=== PATIENT | male | born 1980 | race Caucasian/White ===

== ENCOUNTER 2025-01-02 09:29 | Emergency (ER) | payer OTHER, SELFPAY ==
[2025-01-02 09:30] VITALS: BP 192/118
[2025-01-02 09:49] LABS: % Basophils 1.2 % (0-2); % Eosinophils 3.5 % (0-6); % Immature Granulocytes 0.4 % (0-0.5); % Lymphocytes 21.9 % (20.5-51.1); % Monocytes 7.2 % (1.7-9.3); % Neutrophils 65.8 % (42.2-75.2); Absolute Basophils 0.1 10^3/uL (0-0.2); Absolute Eosinophils 0.4 10^3/uL (0-0.7); Absolute Lymphocytes 2.5 10^3/uL (1.2-3.4); Absolute Monocytes 0.8 10^3/uL (0.1-0.6); Absolute Neutrophils 7.5 10^3/uL (1.4-6.5); Hematocrit 45.6 % (39.0-52.0); Hemoglobin 16.5 g/dL (13.0-18.0); Mean Corp Hgb Conc. 36.2 g/dL (33.0-37.0); Mean Corpuscular Hgb 31.4 pg (27.0-31.0); Mean Corpuscular Volume 86.9 fL (80.0-94.0); Mean Platelet Volume 9.1 fL (7.4-10.4); Nucleated Red Blood Cells % 0 % (-); Platelet Count 211 10^3/uL (130-400); Red Blood Cell Count 5.25 10^6/uL (4.70-6.10); Red Cell Dist. Width 11.9 % (11.5-14.5); White Blood Cell Count 11.3 10^3/uL (4.8-10.8)
[2025-01-02 10:07] LABS: ALT (SGPT) 86 U/L (0-50); AST (SGOT) 49 U/L (17-59); Albumin 4.4 g/dl (3.5-5.0); Alkaline Phosphatase 84 U/L (38-126); Blood Urea Nitrogen 16 mg/dl (9-20); Calcium 9.9 mg/dl (8.4-10.2); Carbon Dioxide 25 mmol/L (22-30); Chloride 106 mmol/L (98-107); Glucose 106 mg/dl (70-99); Potassium 4.5 mmol/L (3.5-5.1); Sodium 140 mmol/L (135-145); Total Protein 7.6 g/dl (6.3-8.2); eGFR > 60.00
[2025-01-02 10:18] LABS: Troponin I < 0.012 ng/ml
--- NOTE | 2025-01-02 11:03 | ED.GENMED ---
History of Present Illness
General
Chief Complaint: Breathing Problem
Source: patient
Exam Limitations: none
Time Seen by Provider: 01/02/25 10:21
Nursing documentation reviewed up to this point in time: agreed with
History of Present Illness
History of Present Illness:
44-year-old male presenting to the emergency department today with concerns of an episode where he felt some chest tightness and shortness of breath upon awakening this morning at 2 AM roughly 8 hours prior to arrival to the emergency department.
Patient went to the primary care doctor this morning was sent to the ER with concerns of the symptoms.
Past History
Past History
ED Past Medical History: None
ED Past Surgical History: None
Social History
Tobacco: Non-smoker
Alcohol: Occasional
Drug: None
Personal:
Living: with family
Employment: Employed
Review of Systems
Review of Systems
Allergies reviewed?: Yes
All Other Systems: ROS reviewed and negative except as documented in HPI and ROS
Phy Exam
Physical Exam
Physical Exam:
GENERAL: Alert , in no apparent distress
EYE: pupils equal and reactive
NECK: Supple, no significant adenopathy.
ENT: o/p clr, mmm.
CARDIAC: Regular rate and rhythm .
LUNGS: Clear breath sounds bilaterally, no acute respiratory distress, no wheezes/rales/rhonchi
ABDOMEN: Soft, without focal tenderness, no r/g, no cvat
NEUROLOGICAL: Alert and oriented, no focal neuro deficits
SKIN: Warm and dry, skin intact.
MUSCULOSKELETAL: No edema, well perfused.
PSYCH: Normal and appropriate interaction.
Scores
Heart Failure Risk
Heart Failure Risk Score: Not Applicable
Course
Orders/Labs/Results
Orders:
Orders
01/02/25 09:32
ECG [Electrocardiogram (*1)] Urgent
Reason for Study: Shortness of Breath
EKG- Treatment ONCE
01/02/25 09:34
CR Chest - 2 Views Urgent
Comment:
Reason For Exam: shortness of breath
01/02/25 09:39
Complete Blood Count/With Diff Urgent
Comprehensive Metabolic Panel Urgent
01/02/25 09:40
Troponin I Urgent
01/02/25 11:04
Vital Signs- Treatment ONCE
Frequency: Once
Abnormal Lab Results
01/02/25
09:39
WBC 11.3 H 10^3/uL
(4.8-10.8)
MCH 31.4 H pg
(27.0-31.0)
Absolute Neuts (auto) 7.5 H 10^3/uL
(1.4-6.5)
Absolute Monos (auto) 0.8 H 10^3/uL
(0.1-0.6)
Glucose 106 H mg/dl
(70-99)
ALT 86 H U/L
(0-50)
01/02/25 09:39
01/02/25 09:39
Vital Signs
Initial and Last Documented VS:
Initial Vital Signs
Temp Pulse Resp BP Pulse Ox
98.8 F 92 16 192/118 98
01/02/25 09:30 01/02/25 09:30 01/02/25 09:30 01/02/25 09:30 01/02/25 09:30
Last Documented Vital Signs
Temp Pulse Resp BP Pulse Ox
98.8 F 86 16 151/113 100
01/02/25 09:30 01/02/25 11:32 01/02/25 11:32 01/02/25 11:32 01/02/25 11:32
MDM/Problems Addressed
MDM/Problems Addressed:
44-year-old male presenting to the emergency department today with concerns of episode of shortness of breath chest pain earlier this morning. Had the flu a few weeks ago. Here blood pressure is elevated otherwise vital signs are normal. Labs
without emergent findings. Troponin negative EKG unchanged for many years. Chest x-ray normal. Blood pressure improving throughout ER stay from the 190s to the 150s over 100 patient asymptomatic for multiple hours here stable for outpatient
follow-up return precautions given. Primary care team was contacted about his elevated blood pressure.
*Critical Care Note
Total Time (30-74mins, 75-104mins- exclusive of procedures): Not Applicable
ED Attending Note
-
Portions of this chart may have been created with voice recognition software.� Occasional wrong word or��sound alike� substitutions may have occurred due to the inherent limitations of voice recognition software.
Discharge Plan
Departure
Patient Disposition: Home (Routine Discharge)
Date of Disposition: 01/02/25
Time of Disposition: 11:59
Patient with high blood pressure during this ER visit?: Yes
Condition: Good
Covid-19: Not Applicable
Discharge Problem:
High blood pressure, Shortness of breath
Instructions: BLOOD PRESSURE
Prescriptions:
No Action
esomeprazole magnesium [Nexium] 40 MG capsule,delayed release(DR/EC)
40 mg PO DAILY
ibuprofen 600 MG tablet
600 mg PO Q6H Qty: 20 0RF
Referrals:
Machelle Cruz MD [Family Provider] -
Activity Restrictions/Additional Instructions:
You came to the emergency department today with concerns of episodes of shortness of breath and chest pain. Here had a reassuring assessment. Your blood pressure was elevated. Please follow close with the primary care doctor for further
management. Return for any worsening, new or concerning symptoms.
Interventions
Interventions:
ED- Cardiac Assessment Last Done: 01/02/25 11:15
ED- Pulmonary Assessment Last Done: 01/02/25 11:15
Discharge Date and Time
Print Language: URDU
[2025-01-02 11:14] VITALS: BP 167/120
[2025-01-02 11:32] VITALS: BP 151/113
== END 2025-01-02 12:31 | disposition home or self-care (01) ==
LOC: EMR 09:29
PROVIDERS: EMERGENCY PHYSICIAN Student in an Organized Health Care Education/Training Program; FAMILY PHYSICIAN Family Medicine
DX: R03.0 Elevated blood-pressure reading, without diagnosis of hypertension (principal); R06.02 Shortness of breath
CPT/HCPCS: 99283; 71046; 80053; 84484; 85025; 93005